=== PATIENT | male | born 1985 | race Two or more races ===

== ENCOUNTER 2019-04-11 01:38 | Emergency (ER) | payer SELFPAY ==
--- NOTE | 2019-04-11 02:33 | NUR ---
PATIENT WAS CALLED SEVERAL TIMES TO BE TRIAGED. PATIENT WAS NOT PRESENT. PATIENT WAS NO TRIAGED OR SEEN BY [facility].
== END 2019-04-11 02:34 | disposition left against medical advice (07) ==
LOC: ER 01:43
DX: Z53.21 Procedure and treatment not carried out due to patient leaving prior to being seen by health care provider (principal)